=== PATIENT | female | born 1930 | race Caucasian/White ===

== ENCOUNTER → 2017-03-13 | Outpatient (CLI) | payer MEDICARE ==
--- NOTE | 2017-03-13 12:34 | PCVCINTER ---
EXAM: 1. RIGHT SUPERFICIAL FEMORAL ARTERY ATHERECTOMY. 2. SECONDARY THROMBECTOMY RIGHT SUPERFICIAL FEMORAL ARTERY. 3. DRUG COATED BALLOON ANGIOPLASTY RIGHT SUPERFICIAL FEMORAL ARTERY. INDICATION: Peripheral arterial disease. Coronary artery disease. Right foot rest pain. Hypertension. Renal atherosclerosis. PROCEDURE: Procedure and risks of angiography intervention is appropriate including limb loss stroke and were discussed with the patient's family and consent obtained. The patient's left groin was prepped abnormal sterile fashion. IV conscious sedation was used to procedure with appropriate monitoring for 90 minutes. Ultrasound was used to interrogate the left groin and showed the left common femoral artery to be patent. A permanent spot film was obtained. Under ultrasound guidance access into the left common femoral artery was obtained and a 5 [place] sheath was placed. Through this a 6 [place] crossover sheath was placed via the left groin to the level of the right common femoral artery. Patient was given 4000 units of heparin IV. Atherectomy of the right superficial femoral artery was performed with 2.0 mm [employer] B [employer] laser atherectomy catheter in the standard fashion. Following atherectomy small areas of thrombus were observed and because of this secondary thrombectomy throughout the right superficial femoral artery was carried out with mechanical suction thrombectomy catheter in the standard fashion. Minimal debris was removed. Following this drug coated balloon angioplasty of the right superficial femoral artery was carried out with a 5 x 60 Medtronic Admiral PERMASTONE INSTALLER catheter. Follow-up angiogram was performed. Catheters and wires removed. Sheath was removed and hemostasis obtained using the FISH device. No immediate complications. FINDINGS: Right superficial femoral artery: 99% stenosis proximal right superficial femoral artery at the proximal margin of a prior stent graft was treated as above with good patency restored. IMPRESSION: 99% stenosis proximal right superficial femoral artery at the proximal margin of a prior stent graft was treated as above with good patency restored. impression follow up LOC:[id number]
== END | disposition home or self-care (01) ==
LOC: PCVCINTER 09:19
PROVIDERS: ATTEND Nuclear Medicine Nuclear Cardiology
DX: I70.213 Atherosclerosis of native arteries of extremities with intermittent claudication, bilateral legs (principal); I70.1 Atherosclerosis of renal artery; I10 Essential (primary) hypertension; I25.10 Atherosclerotic heart disease of native coronary artery without angina pectoris
CPT/HCPCS: 37186; 37225; 76937; 99152; 99153; C1725; C1751; C1757; C1769; C1885; C1894; C2623

== ENCOUNTER → 2018-10-08 | Outpatient (CLI) | payer MEDICARE ==
--- NOTE | 2018-10-08 15:08 | PCVCIMAG ---
EXAM: BILATERAL LOWER EXTREMITY ARTERIAL DUPLEX INDICATION: Peripheral Arterial Disease. Leg pain. FINDINGS: Right Leg: Common femoral and profunda femoral arteries are patent. Previous intervention site mid superficial femoral artery at proximal margin of stent graft maintaining adequate patency. Increased systolic velocity proximal popliteal artery at the distal margin prior stent graft consistent with 95% stenosis. 80% stenosis proximal tibioperoneal trunk with single peroneal artery runoff. The anterior tibial and posterior tibial arteries are occluded but this is unchanged. Left Leg: Common femoral profunda femoral arteries are patent. Previous stents throughout the superficial femoral artery maintaining adequate patency. Moderate stenosis proximal [place] popliteal artery with increased systolic velocity 546 cm/s distal popliteal artery consistent with 95% stenosis. The anterior tibial and posterior tibial arteries are occluded but this is unchanged. Peroneal artery is patent. IMPRESSION: 95% stenosis proximal right popliteal artery at the distal margin of prior stent graft. 80% stenosis proximal right tibioperoneal trunk with single peroneal artery runoff is unchanged. 95% stenosis distal [place] left popliteal artery. 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 LOC:[id number]
== END | disposition home or self-care (01) ==
LOC: PCVCIMAG 11:12
PROVIDERS: ATTEND Emergency Medicine
DX: I73.9 Peripheral vascular disease, unspecified (principal)
CPT/HCPCS: 93925